=== PATIENT | male | born 1995 | race Hispanic/Latino ===

== ENCOUNTER 2021-01-15 10:29 | Emergency (ER) | payer OTHER ==
[~2021-01-15] VITALS: Ht 170.2 cm; Wt 61.7 kg
[2021-01-15 11:45] LABS: HEMATOCRIT 39.8 % (42-54); MEAN CORPUSCULAR HEMOGLOBIN 30.9 pg (27.0-33.0); MEAN CORPUSCULAR HGB CONC 35.4 g/dL (32.0-36.0); MEAN CORPUSCULAR VOLUME 87.1 fL (79-99); RED BLOOD CELL COUNT(AUTO) 4.57 MIL/uL (4.50-6.20); RED CELL DISTRIBUTION WIDTH 11.9 % (11.0-15.5); WHITE BLOOD COUNT (AUTO) 8.6 K/uL (4.8-10.8)
[2021-01-15 11:55] LABS: CREATININE 0.9 mg/dL (0.5-1.5); POTASSIUM 4.1 mmol/L (3.5-5.1)
[2021-01-15] MEDS ORDERED: AZITHROMYCIN 250 MG TABLET PO ONE (12:00)
[2021-01-15] MEDS ORDERED: AMOX/CLAV 875/125MG TAB PO ONE (12:00)
[2021-01-15] MEDS ORDERED: ALBUTEROL INHALER 90MCG/INH IH PRN (12:00)
[2021-01-15] MEDS ORDERED: ACETAMINOPHEN WITH CODEINE 1 TAB TAB PO ONE (12:00)
[2021-01-15 12:09] LABS: ALBUMIN 3.7 g/dL (3.5-5.0); BILIRUBIN,TOTAL 0.6 mg/dL (0.2-1.0); TOTAL PROTEIN, SERUM 7.7 g/dL (6.0-8.3)
[2021-01-15] MEDS ORDERED: BENZ-17 PO (12:46)
[2021-01-15] MEDS ORDERED: AMOX-429 PO (12:46)
[2021-01-15] MEDS ORDERED: ALBUHFA IH (12:46)
[2021-01-15] MEDS ORDERED: ACET-2247 PO (12:46)
[2021-01-15 13:10] VITALS: BP 110/66
== END 2021-01-15 13:14 ==
LOC: EDH 10:29
DX: J40 Bronchitis, not specified as acute or chronic (principal); Z20.822 Contact with and (suspected) exposure to COVID-19; Z79.899 Other long term (current) drug therapy
CPT/HCPCS: 36415; 71045; 80053; 82550; 83874; 84484; 85027; 87635; 87804 ×2; 99284; C9803